=== PATIENT | male | born 1975 | race Caucasian/White ===

== ENCOUNTER 2016-12-09 16:09 | Emergency (ER) | payer OTHER ==
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
[2016-12-09] MEDS ORDERED: CEPHALEXIN MONOHYDRATE 250 MG CAPSULE PO ONE (18:12)
[2016-12-09] MEDS ORDERED: CEPHALEXIN MONOHYDRATE 250 MG CAPSULE ONE (18:16)
[2016-12-09 18:19] VITALS: BP 145/82
== END 2016-12-09 18:20 ==
LOC: ER 16:09
PROC: 0RSW3ZZ Reposition Right Finger Phalangeal Joint, Percutaneous Approach (ICD-10-PCS; principal; 2016-12-09)
PROC: 0JQJ0ZZ Repair Right Hand Subcutaneous Tissue and Fascia, Open Approach (ICD-10-PCS; 2016-12-09)
DX: S63.259A Unspecified dislocation of unspecified finger, initial encounter (principal); S61.210A Laceration without foreign body of right index finger without damage to nail, initial encounter; Y04.2XXA Assault by strike against or bumped into by another person, initial encounter; Y92.89 Other specified places as the place of occurrence of the external cause